=== PATIENT | female | born 1980 | race Caucasian/White ===

== ENCOUNTER 2017-02-28 13:02 | Emergency (ER) | payer OTHER ==
[~2017-02-28] VITALS: Ht 152.4 cm; Wt 47.7 kg
[2017-02-28 15:17] VITALS: BP 109/65
== END 2017-02-28 15:18 | disposition home or self-care (01) ==
LOC: EME 13:02
DX: S40.021A Contusion of right upper arm, initial encounter (principal); S00.511A Abrasion of lip, initial encounter; M79.661 Pain in right lower leg; V44.6XXA Car passenger injured in collision with heavy transport vehicle or bus in traffic accident, initial encounter
CPT/HCPCS: 73060; 99281; 99283